=== PATIENT | male | born 1985 | race Caucasian/White ===

== ENCOUNTER 2020-07-25 06:45 | Emergency (ER) | payer OTHER ==
[~2020-07-25] VITALS: Ht 175.3 cm; Wt 79.8 kg
[2020-07-25 06:52] VITALS: BP 111/62
--- NOTE | 2020-07-25 06:52 | NUR ---
TO BED AMBULATORY
--- NOTE | 2020-07-25 07:07 | NUR ---
RECEIVED REPORT FROM EDUAR RAMIREZ, TRANSFER OF CARE AT THIS TIME. PER ORDER, FRANK GUNN.
--- NOTE | 2020-07-25 07:15 | NUR ---
34 Y/O MALE C/O RIGHT INDEX FINGER PAIN X2 WEEKS. RIGHT INDEX FINGER IS SWOLLEN AND RED, LIMITED ROM, CAP REFILL <2 SECONDS WITH REGULAR +2 RADIAL PULSES. PT C/O PAIN 12/31 THAT IS THROBBING AND NONRADIATING. PT DENIES SOB/N/V. PT IS A&O X4, HAS REGULAR, NONLABORED BREATHING, LAYING IN BED IN THE LOWEST POSITION WITH BRAKES LOCKED. NKA PMH: DENIES
[2020-07-25] MEDS ORDERED: ACETAMINOPHEN EXTRA STRENGTH 500 MG TAB PO ONE (07:30)
[2020-07-25] MEDS ORDERED: IBUPROFEN 600 MG TAB PO ONE (07:30)
[2020-07-25 07:51] VITALS: BP 111/62
--- NOTE | 2020-07-25 07:52 | NUR ---
Patient discharged with v/s stable. Written and verbal after care instructions given and explained. Patient alert, oriented and verbalized understanding of instructions. Ambulatory with steady gait. All questions addressed prior to discharge. ID band removed. Patient advised to follow up with PMD. Rx of ibuprofen 600mg tab PO TID given. Patient educated on indication of medication including possible reaction and side effects. Opportunity to ask questions provided and answered.
== END 2020-07-25 07:52 | disposition home or self-care (01) ==
LOC: MED 06:45
DX: S62.66 Nondisplaced fracture of distal phalanx of finger (principal); X58.XXXD Exposure to other specified factors, subsequent encounter
CPT/HCPCS: 99283